=== PATIENT | female | born 1950 | race Caucasian/White ===

== ENCOUNTER 2018-06-15 08:13 | Emergency (ER) | payer MEDICARE, OTHER ==
[2018-06-15] MEDS ORDERED: Ondansetron 4 MG/2 ML SDV IV ONE (08:35)
[2018-06-15] MEDS ORDERED: fentaNYL 100 MCG/2 ML SDV IVPUSH ONE ×2 (08:35→09:16)
[2018-06-15] MEDS: Sodium Chloride 0.9% 10 ML Syringe FLUSH PRN ×2 (08:40→09:01)
[2018-06-15 08:46] LABS: ANION GAP 15.6; CHLORIDE,CL 91 mmol/L (101-111); SODIUM,NA 128 mmol/L (135-145)
[2018-06-15] MEDS ORDERED: Aspirin 81 MG Tab.Chew PO ONE (08:49)
[2018-06-15] MEDS ORDERED: Heparin Sodium 5,000 Units/ML Vial IVPUSH ONE (08:50)
[2018-06-15] MEDS ORDERED: Heparin Sodium/0.45% NaCl 25,000 UNITS/500 ML BAG IV SCH (09:00)
[2018-06-15] MEDS ORDERED: Nitroglycerin 0.4 MG Tab.SL SL PRN (09:08)
[2018-06-15] MEDS ORDERED: Iopamidol 755 Mg/ML 100 ML Bottle IVPUSH ONE (09:25)
[2018-06-15] MEDS ORDERED: Clopidogrel 75 MG Tab PO ONE (10:01)
--- NOTE | 2018-06-15 10:17 | EDM.PDOC ---
Scribed by Jessika Salgado 06/15/18 1016 Jeffrey Li MD ED HPI GENERAL MEDICAL PROBLEM - General Chief Complaint: Chest Pain Stated Complaint: FEELS LIKE HAVING HEART ATTACK Time Seen by Provider: 06/15/18 08:14 Source of Information: Reports: Patient, RN, RN Notes Reviewed History Limitations: Reports: No Limitations - History of Present Illness INITIAL COMMENTS - FREE TEXT/NARRATIVE: Patient presents to ER with complaint of persistent chest pain radiating to bilateral shoulders and neck x1 week. 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 She has ongoing workup and does not know the specifics of her malignancy. She has been doctoring with Dr. Schrader this past week for her chest pain symptoms. She was treated for anxiety with panic attacks. She states the medications did not help so she discontinued them. This morning she decided to come to the ER to see if her chest pain was related to her heart, cancer or something else. She admits to mild intermittent nausea, very slight shortness of breath. She denies fever, chills, vomiting, edema or orthopnea. Patient states that she has had back pain for the past couple of weeks in the upper to mid back region. She states that she back pain was unrelieved from any of the medications from the clinic and is still present as well. Patient states that she has no other significant past medical history. Denies any history of cardiovascular disease. Onset: Gradual Duration: Getting Worse Location: Reports: Generalized Quality: Reports: Ache Severity: Severe Improves with: Reports: None Worsens with: Reports: None Associated Symptoms: Reports: No Other Symptoms Bilateral Arm Pain Score (Numeric/FACES): 9 - Related Data Allergies Allergy/AdvReac Type Severity Reaction Status Date / Time No Known Allergies Allergy Verified 06/15/18 08:20 Home Meds: Home Meds . [Unable to Verify Home Med List] 06/15/18 [History] ED ROS GENERAL - Review of Systems Review Of Systems: ROS reveals no pertinent complaints other than HPI. ED EXAM, GENERAL - Physical Exam Exam: See Below Exam Limited By: No Limitations General Appearance: Alert, WD/WN, No Apparent Distress, Anxious Eye Exam: Bilateral Eye: Normal Inspection Nose: Normal Inspection, Normal Mucosa, No Blood Throat/Mouth: Normal Inspection, Normal Lips, Normal Teeth, Normal Gums, Normal Oropharynx, Normal Voice, No Airway Compromise Head: Atraumatic, Normocephalic Neck: Normal Inspection, Supple, Non-Tender, Full Range of Motion. No: Carotid Bruit Respiratory/Chest: No Respiratory Distress, No Accessory Muscle Use, Decreased Breath Sounds, Rales. No: Rhonchi, Wheezing Cardiovascular: Regular Rate, Rhythm, No Edema, No JVD GI/Abdominal: Normal Bowel Sounds, Soft, Non-Tender, No Abnormal Bruit, Other ( no pulsatile mass) (Female) Exam: Deferred Rectal (Female) Exam: Deferred Back Exam: Normal Inspection Extremities: Normal Inspection, No Pedal Edema. No: Lydia's Sign Neurological: Alert, Oriented, No Motor/Sensory Deficits Psychiatric: Anxious, Depressed Mood, Flat Affect Skin Exam: Warm, Dry, Intact, Normal Color, No Rash EKG INTERPRETATION EKG Date: 06/15/18 Time: 08:16 Rhythm: Other (sinus rhythm) Rate (Beats/Min): 83 [place]: LAD-Left [place] Deviation P-Wave: Present QRS: Other (left ventricular hypertrophy) ST-T: Depressed (borderline ST segment depression (approximately 2mm) inferior leads.) QT: Normal Comparison: NA - No Prior EKG EKG Interpretation Comments: Repeat EKG at 1005 hours sinus rhythm rate 92. Increasing ST segment depression in inferior leads. Course - Vital Signs Last Recorded V/S: Last Vital Signs Temp 37.3 C 06/15/18 08:20 Pulse 96 06/15/18 08:20 Resp 24 H 06/15/18 08:20 BP 131/81 06/15/18 09:16 Pulse Ox 98 06/15/18 08:20 - Orders/Labs/Meds Orders: Active Orders 24 hr Category Date Time Status EKG 12 Lead [EKG Documentation Completion] [RC] STAT Care 06/15/18 08:16 Active EKG 12 Lead [EKG Documentation Completion] [RC] STAT Care 06/15/18 10:01 Active Peripheral IV Care [RC] . DIRECTED Care 06/15/18 08:17 Active Chest 1V Frontal [CR] Stat Exams 06/15/18 08:16 Ordered Chest w Cont [CT] Stat Exams 06/15/18 09:14 Taken CULTURE BLOOD [BC] Stat Lab 06/15/18 09:14 Received CULTURE BLOOD [BC] Stat Lab 06/15/18 09:18 Results UA W/MICROSCOPIC [URIN] Stat Lab 06/15/18 08:16 Ordered Heparin Sodium/0.45% NaCl [Heparin 25,000 Units in 1/2 Med 06/15/18 09:00 Active NS 500 ML] 25,000 units in 500 ml IV TITRATE Nitroglycerin [Nitrostat] Med 06/15/18 09:08 Active 0.4 mg SL Q5M PRN Sodium Chloride 0.9% [Saline Flush] Med 06/15/18 08:17 Active 10 ml FLUSH ASDIRECTED PRN Blood Culture x2 Reflex Set [OM.PC] Stat Oth 06/15/18 08:48 Ordered Peripheral IV Insertion Adult [OM.PC] Stat Oth 06/15/18 08:16 Ordered Medication Orders Heparin Sodium/Sodium Chloride (Heparin 25,000 Units In 1/2 Ns 500 Ml) 25,000 units in 500 mls @ 14.587 mls/hr IV TITRATE ZACKERY; Protocol Last Admin: 06/15/18 09:04 Dose: 12 units/kg/hr, 14.587 mls/hr Nitroglycerin (Nitrostat) 0.4 mg SL Q5M PRN PRN Reason: Chest Pain Last Admin: 06/15/18 09:16 Dose: 0.4 mg Sodium Chloride (Saline Flush) 10 ml FLUSH ASDIRECTED PRN PRN Reason: Keep Vein Open Last Admin: 06/15/18 09:01 Dose: 10 ml Admin: 06/15/18 08:40 Dose: 10 ml Labs: Laboratory Tests 06/15/18 06/15/18 06/15/18 Range/Units 08:20 08:20 08:20 WBC 22.5 H (5.0-10.0) 10^3/uL RBC 5.70 H (4.2-5.4) 10^6/uL Hgb 16.0 (12.0-16.0) g/dL Hct 48.7 H (37.0-47.0) % MCV 85.4 (80-100) fL MCH 28.1 (27.0-34.0) pg MCHC 32.9 L (33.0-35.0) g/dL Plt Count 465 H (150-450) 10^3/uL Neut % (Auto) 87.5 H (42.2-75.2) % Lymph % (Auto) 4.5 L (20.5-50.1) % [place] % (Auto) 5.9 (2-8) % Eos % (Auto) 1.3 (1.0-3.0) % Baso % (Auto) 0.8 (0.0-1.0) % Add Manual Diff Yes Neutrophils % (Manual) 74 (42-75) % Band Neutrophils % 4 % Lymphocytes % (Manual) 13 L (20-50) % Monocytes % (Manual) 6 (2-8) % Eosinophils % (Manual) 1 (1-3) % Basophils % (Manual) 2 PT 11.1 (9.0-12.0) SEC INR 1.1 (0.9-1.2) APTT 31.9 (22.0-34.0) SEC Sodium 128 L (135-145) mmol/L Potassium 3.6 (3.6-5.0) mmol/L Chloride 91 L (101-111) mmol/L Carbon Dioxide 25.0 (21.0-31.0) mmol/L Anion Gap 15.6 BUN 11 (7-18) mg/dL Creatinine 0.7 (0.6-1.3) mg/dL Est Cr Clr Drug Dosing 59.99 mL/min Estimated GFR (MDRD) > 60 BUN/Creatinine Ratio 15.71 Glucose 135 H (74-105) mg/dL Lactic Acid (0.5-2.2) mmol/L Calcium 8.8 (8.4-10.2) mg/dl Magnesium 1.8 (1.8-2.5) mg/dL Total Bilirubin 1.2 H (0.2-1.0) mg/dL AST 35 (10-42) IU/L ALT 32 (10-60) IU/L Alkaline Phosphatase 39 L (42-121) IU/L Troponin I 1.43 H* (0.00-0.02) ng/ml B-Natriuretic Peptide (0-100) pg/ml Total Protein 7.4 (6.7-8.2) g/dl Albumin 4.3 (3.2-5.5) g/dl Globulin 3.1 Albumin/Globulin Ratio 1.39 Amylase 38 (28-100) U/L Lipase 21 L (22-51) U/L TSH, Ultra Sensitive (0.45-5.33) uIu/mL 06/15/18 06/15/18 06/15/18 Range/Units 08:20 08:20 09:14 WBC (5.0-10.0) 10^3/uL RBC (4.2-5.4) 10^6/uL Hgb (12.0-16.0) g/dL Hct (37.0-47.0) % MCV (80-100) fL MCH (27.0-34.0) pg MCHC (33.0-35.0) g/dL Plt Count (150-450) 10^3/uL Neut % (Auto) (42.2-75.2) % Lymph % (Auto) (20.5-50.1) % [place] % (Auto) (2-8) % Eos % (Auto) (1.0-3.0) % Baso % (Auto) (0.0-1.0) % Add Manual Diff Neutrophils % (Manual) (42-75) % Band Neutrophils % % Lymphocytes % (Manual) (20-50) % Monocytes % (Manual) (2-8) % Eosinophils % (Manual) (1-3) % Basophils % (Manual) PT (9.0-12.0) SEC INR (0.9-1.2) APTT (22.0-34.0) SEC Sodium (135-145) mmol/L Potassium (3.6-5.0) mmol/L Chloride (101-111) mmol/L Carbon Dioxide (21.0-31.0) mmol/L Anion Gap BUN (7-18) mg/dL Creatinine (0.6-1.3) mg/dL Est Cr Clr Drug Dosing mL/min Estimated GFR (MDRD) BUN/Creatinine Ratio Glucose (74-105) mg/dL Lactic Acid 1.3 (0.5-2.2) mmol/L Calcium (8.4-10.2) mg/dl Magnesium (1.8-2.5) mg/dL Total Bilirubin (0.2-1.0) mg/dL AST (10-42) IU/L ALT (10-60) IU/L Alkaline Phosphatase (42-121) IU/L Troponin I (0.00-0.02) ng/ml B-Natriuretic Peptide 725 H (0-100) pg/ml Total Protein (6.7-8.2) g/dl Albumin (3.2-5.5) g/dl Globulin Albumin/Globulin Ratio Amylase (28-100) U/L Lipase (22-51) U/L TSH, Ultra Sensitive 2.02 (0.45-5.33) uIu/mL Meds: Medications Generic Name Dose Route Start Last Admin Trade Name Freq PRN Reason Stop Dose Admin Heparin Sodium/Sodium Chloride 25,000 units in 500 mls @ 14.587 mls/hr 09:00 06/15/18 09:04 Heparin 25,000 Units In 1/2 Ns 500 Ml IV 12 units/kg/hr TITRATE ZACKERY 14.587 mls/hr Administration Protocol 12 UNITS/KG/HR Nitroglycerin 0.4 mg 06/15/18 09:08 06/15/18 09:16 Nitrostat SL 0.4 mg Q5M PRN Administration Chest Pain Sodium Chloride 10 ml 06/15/18 08:17 06/15/18 09:01 Saline Flush FLUSH 10 ml ASDIRECTED PRN Administration Keep Vein Open Discontinued Medications Generic Name Dose Route Start Last Admin Trade Name Freq PRN Reason Stop Dose Admin Aspirin 324 mg 06/15/18 08:49 06/15/18 08:57 Aspirin PO 06/15/18 08:50 324 mg ONETIME ONE Administration Clopidogrel Bisulfate 300 mg 06/15/18 10:01 06/15/18 10:05 Plavix PO 06/15/18 10:02 300 mg ONETIME ONE Administration Fentanyl 25 mcg 06/15/18 08:35 06/15/18 08:41 Sublimaze IVPUSH 06/15/18 08:36 25 mcg ONETIME ONE Administration Fentanyl 50 mcg 06/15/18 09:16 06/15/18 09:17 Sublimaze IVPUSH 06/15/18 09:17 50 mcg ONETIME ONE Administration Heparin Sodium (Porcine) 3,600 units 06/15/18 08:50 06/15/18 09:00 Heparin Sodium IVPUSH 06/15/18 08:51 3,600 units .BOLUS ONE Administration Iopamidol 100 ml 06/15/18 09:25 Isovue-370 (76%) IVPUSH 06/15/18 09:26 ONETIME ONE Ondansetron HCl 4 mg 06/15/18 08:35 06/15/18 08:39 Zofran IV 06/15/18 08:36 4 mg ONETIME ONE Administration - Radiology Interpretation Free Text/Narrative:: Chest x-ray: increased pulm. vasc. congestion, see Rad. report. CTA chest: no dissection, see Rad. report. - Re-Assessments/Exams Free Text/Narrative Re-Assessment/Exam: 06/15/18 No dissection. Heparin initiated. Pt transferred by fixed wing air to [facility] with Dr. Kev fraire. Departure - Departure Time of Disposition: 10:16 Disposition: DC/Tfer to [facility] 02 Reason for Transfer *Q: Primary PCI Indicated Condition: Critical Clinical Impression: Non-ST elevation LA (NSTEMI) Referrals: Nancy Fischer APRN [Primary Care Provider] - Forms: ED Department Discharge, Interfacility Transfer EMTALA - My Orders Last 24 Hours: My Active Orders 06/15/18 08:16 EKG 12 Lead [EKG Documentation Completion] [RC] STAT Chest 1V Frontal [CR] Stat UA W/MICROSCOPIC [URIN] Stat Peripheral IV Insertion Adult [OM.PC] Stat 06/15/18 08:17 Peripheral IV Care [RC] . DIRECTED Sodium Chloride 0.9% [Saline Flush] 10 ml FLUSH ASDIRECTED PRN 06/15/18 08:48 Blood Culture x2 Reflex Set [OM.PC] Stat 06/15/18 09:00 Heparin Sodium/0.45% NaCl [Heparin 25,000 Units in 1/2 NS 500 ML] 25,000 units in 500 ml IV TITRATE 06/15/18 09:08 Nitroglycerin [Nitrostat] 0.4 mg SL Q5M PRN 06/15/18 09:14 Chest w Cont [CT] Stat CULTURE BLOOD [BC] Stat 06/15/18 09:18 CULTURE BLOOD [BC] Stat 06/15/18 10:01 EKG 12 Lead [EKG Documentation Completion] [RC] STAT - Assessment/Plan Last 24 Hours: My Active Orders 06/15/18 08:16 EKG 12 Lead [EKG Documentation Completion] [RC] STAT Chest 1V Frontal [CR] Stat UA W/MICROSCOPIC [URIN] Stat Peripheral IV Insertion Adult [OM.PC] Stat 06/15/18 08:17 Peripheral IV Care [RC] . DIRECTED Sodium Chloride 0.9% [Saline Flush] 10 ml FLUSH ASDIRECTED PRN 06/15/18 08:48 Blood Culture x2 Reflex Set [OM.PC] Stat 06/15/18 09:00 Heparin Sodium/0.45% NaCl [Heparin 25,000 Units in 1/2 NS 500 ML] 25,000 units in 500 ml IV TITRATE 06/15/18 09:08 Nitroglycerin [Nitrostat] 0.4 mg SL Q5M PRN 06/15/18 09:14 Chest w Cont [CT] Stat CULTURE BLOOD [BC] Stat 06/15/18 09:18 CULTURE BLOOD [BC] Stat 06/15/18 10:01 EKG 12 Lead [EKG Documentation Completion] [RC] STAT I have read and agree with the documentation that has been completed regarding this visit. By signing this record, I attest that the documentation was completed in my physical presence and is an accurate record of the encounter.
--- NOTE | 2018-06-17 13:57 | EKG ---
06/15/2018 - WHITNEY BOLES - TIME: 08:16:32 FINDINGS: A 12-lead EKG shows normal sinus rhythm with left axis deviation. No significant ST elevation or ST depression noted on this 12-lead EKG except for nonspecific changes noted on leads II, III, aVF with mild depression. I would recommend repeating the EKG. [facility] /[id number]
--- NOTE | 2018-06-18 09:32 | EKG ---
06/15/2018- WHITNEY BOLES - FINDINGS: A 12-lead EKG shows normal sinus rhythm with no significant ST elevation or ST depression. Noted to have mild ST depression in leads II, III, and aVF. Suggest further cardiac workup as per patient's symptomatology. Left axis deviation noted. [facility] /[id number]
== END 2018-06-15 10:17 ==
LOC: DL.ED 08:13
DX: I21.4 Non-ST elevation (NSTEMI) myocardial infarction (principal)
CPT/HCPCS: 36415; 71045; 71260; 80053; 82150; 83605; 83690; 83735; 83880; 84443; 84484; 85025; 85610; 85730; 87040; 93005; 93010; 96374; 96375; 96376; 99284; 99285; A9270; J1644; J2405; J3010; J7050; Q9967

== ENCOUNTER 2018-07-26 20:13 | Emergency (ER) | payer MEDICARE, OTHER ==
--- NOTE | 2018-07-26 22:38 | EDM.PDOC ---
ED HPI GENERAL MEDICAL PROBLEM - General Chief Complaint: Skin Complaint Stated Complaint: LEG MENDEZ [id number] Time Seen by Provider: 07/26/18 22:33 Source of Information: Reports: Patient History Limitations: Reports: No Limitations - History of Present Illness INITIAL COMMENTS - FREE TEXT/NARRATIVE: c/o left thigh rash not itchy. states noticed it today when left thigh felt swollen. had hysterectomy down in [place] Saturday. been fine deny CP/SOB. did have some numbness to left toes while sitting in waiting room but after walking about it went away. - Related Data Allergies Allergy/AdvReac Type Severity Reaction Status Date / Time No Known Allergies Allergy Verified 07/26/18 22:38 Home Meds: Home Meds Aspirin [Halfprin] 81 mg PO DAILY 07/02/18 [History] Clopidogrel [Plavix] 75 mg PO DAILY 07/02/18 [History] Nitroglycerin 0.4 mg SL ASDIRECTED 07/02/18 [History] atorvaSTATin [Lipitor] 40 mg PO DAILY 07/02/18 [History] Past Medical History - Past Health History Medical/Surgical History: Denies Medical/Surgical History Other HEENT History: Wears reading glasses. 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 ED EXAM, SKIN/RASH Exam: See Below Exam Limited By: No Limitations General Appearance: Alert, WD/WN, Mild Distress, Other (distraught) Ears: Hearing Grossly Normal Throat/Mouth: Normal Voice, No Airway Compromise Head: Atraumatic Neck: Non-Tender, Full Range of Motion Respiratory/Chest: No Respiratory Distress Cardiovascular: Regular Rate, Rhythm GI/Abdominal: Soft, Non-Tender Extremities: Other (left thigh ecchymotic 23" diam and right thigh non 21.3" diam. NV wnl, gait limited to discomfort) Neurological: Alert, Oriented, Normal Cognition, Normal Gait, No Motor/Sensory Deficits Psychiatric: Flat Affect Skin: Warm, Dry, Ecchymosis Location, Skin: Abdomen, Lower Extremity, Right Associated features: Swelling. No: Warmth, Tenderness, Inflammation Lymphatic: No Adenopathy Course - Vital Signs Last Recorded V/S: Last Vital Signs Temp 36.5 C 07/26/18 22:27 Pulse 99 07/26/18 22:27 Resp 19 07/26/18 22:27 BP 132/67 07/26/18 22:27 Pulse Ox 100 07/26/18 22:27 - Orders/Labs/Meds Orders: Active Orders 24 hr Category Date Time Status Chest 1V Frontal [CR] Urgent Exams 07/27/18 00:40 Taken Labs: Laboratory Tests 07/26/18 07/26/18 07/26/18 Range/Units 22:55 22:55 22:55 WBC 23.8 H (5.0-10.0) 10^3/uL RBC 2.49 L (4.2-5.4) 10^6/uL Hgb 7.5 L D (12.0-16.0) g/dL Hct 23.7 L (37.0-47.0) % MCV 95.2 D (80-100) fL MCH 30.1 (27.0-34.0) pg MCHC 31.6 L (33.0-35.0) g/dL Plt Count 640 H D (150-450) 10^3/uL Neut % (Auto) 79.1 H (42.2-75.2) % Lymph % (Auto) 10.3 L (20.5-50.1) % [place] % (Auto) 7.2 (2-8) % Eos % (Auto) 2.8 (1.0-3.0) % Baso % (Auto) 0.6 (0.0-1.0) % Add Manual Diff Yes Neutrophils % (Manual) 53 (42-75) % Band Neutrophils % 17 % Lymphocytes % (Manual) 17 L (20-50) % Atypical Lymphs % 0 % Monocytes % (Manual) 8 (2-8) % Eosinophils % (Manual) 4 H (1-3) % Basophils % (Manual) 1 Platelet Estimate Increased Hypochromasia 2+ moderate Poikilocytosis 1+ slight Anisocytosis 1+ slight PT 10.4 (9.0-12.0) SEC INR 1.0 (0.9-1.2) APTT 23.7 (22.0-34.0) SEC Sodium 135 (135-145) mmol/L Potassium 4.3 (3.6-5.0) mmol/L Chloride 100 L (101-111) mmol/L Carbon Dioxide 27.0 (21.0-31.0) mmol/L Anion Gap 12.3 BUN 8 (7-18) mg/dL Creatinine 0.5 L (0.6-1.3) mg/dL Est Cr Clr Drug Dosing 91.70 mL/min Estimated GFR (MDRD) > 60 BUN/Creatinine Ratio 16.00 Glucose 110 H (74-105) mg/dL Calcium 8.1 L (8.4-10.2) mg/dl Total Bilirubin 2.1 H (0.2-1.0) mg/dL AST 26 (10-42) IU/L ALT 19 (10-60) IU/L Alkaline Phosphatase 30 L (42-121) IU/L C-Reactive Protein (0.0-1.3) mg/dL Total Protein 5.4 L (6.7-8.2) g/dl Albumin 3.1 L (3.2-5.5) g/dl Globulin 2.3 Albumin/Globulin Ratio 1.35 Urine Color (YELLOW) Urine Appearance (CLEAR) Urine pH (5.0-9.0) Ur Specific [place] (1.005-1.030) Urine Protein (NEGATIVE) Urine Glucose (UA) (NEGATIVE) Urine Ketones (NEGATIVE) Urine Occult Blood (NEGATIVE) Urine Nitrite (NEGATIVE) Urine Bilirubin (NEGATIVE) Urine Urobilinogen (0.2-1.0) mg/dL Ur Leukocyte Esterase (NEGATIVE) Urine RBC /HPF Urine WBC (0-5/HPF) /HPF Ur Epithelial Cells /HPF Urine Bacteria (0-FEW/HPF) /HPF 07/26/18 07/27/18 Range/Units 22:55 00:46 WBC (5.0-10.0) 10^3/uL RBC (4.2-5.4) 10^6/uL Hgb (12.0-16.0) g/dL Hct (37.0-47.0) % MCV (80-100) fL MCH (27.0-34.0) pg MCHC (33.0-35.0) g/dL Plt Count (150-450) 10^3/uL Neut % (Auto) (42.2-75.2) % Lymph % (Auto) (20.5-50.1) % [place] % (Auto) (2-8) % Eos % (Auto) (1.0-3.0) % Baso % (Auto) (0.0-1.0) % Add Manual Diff Neutrophils % (Manual) (42-75) % Band Neutrophils % % Lymphocytes % (Manual) (20-50) % Atypical Lymphs % % Monocytes % (Manual) (2-8) % Eosinophils % (Manual) (1-3) % Basophils % (Manual) Platelet Estimate Hypochromasia Poikilocytosis Anisocytosis PT (9.0-12.0) SEC INR (0.9-1.2) APTT (22.0-34.0) SEC Sodium (135-145) mmol/L Potassium (3.6-5.0) mmol/L Chloride (101-111) mmol/L Carbon Dioxide (21.0-31.0) mmol/L Anion Gap BUN (7-18) mg/dL Creatinine (0.6-1.3) mg/dL Est Cr Clr Drug Dosing mL/min Estimated GFR (MDRD) BUN/Creatinine Ratio Glucose (74-105) mg/dL Calcium (8.4-10.2) mg/dl Total Bilirubin (0.2-1.0) mg/dL AST (10-42) IU/L ALT (10-60) IU/L Alkaline Phosphatase (42-121) IU/L C-Reactive Protein 3.8 H (0.0-1.3) mg/dL Total Protein (6.7-8.2) g/dl Albumin (3.2-5.5) g/dl Globulin Albumin/Globulin Ratio Urine Color Yellow (YELLOW) Urine Appearance Clear (CLEAR) Urine pH 7.5 (5.0-9.0) Ur Specific [place] 1.015 (1.005-1.030) Urine Protein Negative (NEGATIVE) Urine Glucose (UA) Negative (NEGATIVE) Urine Ketones Negative (NEGATIVE) Urine Occult Blood Trace-intact H (NEGATIVE) Urine Nitrite Negative (NEGATIVE) Urine Bilirubin Negative (NEGATIVE) Urine Urobilinogen 0.2 (0.2-1.0) mg/dL Ur Leukocyte Esterase Negative (NEGATIVE) Urine RBC 0-5 /HPF Urine WBC Not seen (0-5/HPF) /HPF Ur Epithelial Cells Few /HPF Urine Bacteria Rare (0-FEW/HPF) /HPF - Re-Assessments/Exams Free Text/Narrative Re-Assessment/Exam: 07/27/18 00:41 results discussed with pt who wish Dr Brown from [place] be contacted. spoke with Mihaela re; high wbc, rec' r/o DVT. info relay to pt who states she is feeling better and thinks she might have done too much after coming home. 07/27/18 01:20 results discussed with pt who is feeling good and thigh diam has decreased to 21 " Departure - Departure Time of Disposition: 01:21 Disposition: Home, Self-Care 01 Condition: Good Clinical Impression: Leg edema, left - Discharge Information Forms: ED Department Discharge Additional Instructions: 1) rest and elevate leg as much as possible 2) recheck if there is any change or concern - My Orders Last 24 Hours: My Active Orders 07/27/18 00:40 Chest 1V Frontal [CR] Urgent - Assessment/Plan Last 24 Hours: My Active Orders 07/27/18 00:40 Chest 1V Frontal [CR] Urgent
[2018-07-26 23:32] LABS: ANION GAP 12.3; CHLORIDE,CL 100 mmol/L (101-111); SODIUM,NA 135 mmol/L (135-145)
== END 2018-07-27 01:26 | disposition home or self-care (01) ==
LOC: DL.ED 20:13
DX: R60.0 Localized edema (principal); Z79.82 Long term (current) use of aspirin; Z79.899 Other long term (current) drug therapy
CPT/HCPCS: 36415; 71045; 80053; 81001; 85025; 85610; 85730; 86140; 99283; 99284